=== PATIENT | male | born 1940 | race Caucasian/White ===

== ENCOUNTER 2017-07-16 10:33 | Emergency (ER) | payer MEDICARE, MEDICAID ==
[~2017-07-16] VITALS: Ht 177.8 cm; Wt 90.7 kg
[~2017-07-16 10:33] MED LIST: BENA20TA2 PO; METF850T2 PO; SIMV20TA6 PO; TAMS0.4C34 PO
[2017-07-16 11:17] LABS: BASOPHILS % (AUTO) 0.3 % (0.0-2.0); EOSINOPHILS # (AUTO) 0.4 K/uL (0.0-0.7); EOSINOPHILS % (AUTO) 6.6 % (0.0-7.0); HEMOGLOBIN 13.1 G/DL (14.0-18.0); MEAN CORPUSCULAR HEMOGLOBIN 30.6 UUG (27.0-31.0); MEAN CORPUSCULAR HGB CONC 34 g/dL (32.0-37.0); MONOCYTES # (AUTO) 0.9 K/UL (0.1-1.30); MONOCYTES % (AUTO) 14.8 % (0.0-11.0); NEUTROPHILS # (AUTO) 2.6 K/UL (1.8-8.9); NEUTROPHILS % (AUTO) 44.3 % (38.5-71.5); PLATELET COUNT (AUTO) 167 K/UL (150-450); RED BLOOD CELL COUNT(AUTO) 4.28 MIL/UL (4.7-6.1); WHITE BLOOD COUNT (AUTO) 5.9 K/UL (4.0-11.2)
[2017-07-16 11:22] LABS: CARBON DIOXIDE 31 mmol/L (21-32); CHLORIDE 98 mmol/L (98-107); CREATININE 1.2 mg/dL (0.6-1.3); GLUCOSE 155 mg/dL (74-106); POTASSIUM 4.2 mmol/L (3.5-5.1); UREA NITROGEN, BLOOD 18 mg/dL (7-18)
[2017-07-16 11:38] LABS: ALANINE AMINOTRANSFERASE 32 U/L (16-63); ALKALINE PHOSPHATASE 41 U/L (50-136); ASPARTATE AMINOTRANSFERASE 24 U/L (15-37); BILIRUBIN,DIRECT 0.3 mg/dL (0.0-0.2); BILIRUBIN,TOTAL 1.6 mg/dL (0.2-1.0); TOTAL PROTEIN, SERUM 7.1 g/dL (6.4-8.2)
--- NOTE | 2017-07-16 13:36 | NUR ---
Patient discharged to home in stable conditon. Written and verbal after care instructions given. Patient verbalizes understanding of instructions.PT WALKS IN STEADY GAIT, SAYS FEELS BETTER, DENEIS CO,PALPITATION OR SOB AT THIS TIME.
[2017-07-16 13:37] VITALS: BP 119/65
== END 2017-07-16 13:38 | disposition home or self-care (01) ==
LOC: ER 10:33
DX: R07.9 Chest pain, unspecified (principal); R05 Cough; I25.2 Old myocardial infarction; I10 Essential (primary) hypertension; I70.0 Atherosclerosis of aorta; E11.9 Type 2 diabetes mellitus without complications; E78.5 Hyperlipidemia, unspecified
CPT/HCPCS: 36415; 70030-TC; 71010; 85025; 85730; 93005; A4663

== ENCOUNTER 2017-08-12 06:49 | Emergency (ER) | payer MEDICARE, MEDICAID ==
[~2017-08-12] VITALS: Ht 180.3 cm; Wt 88.5 kg
--- NOTE | 2017-08-12 07:14 | NUR ---
Pt seen by Dr. Martin. Xray at bedside.
--- NOTE | 2017-08-12 07:30 | NUR ---
Report given to MARY KATE Canchola. I relinquish care of pt at this time.
--- NOTE | 2017-08-12 08:30 | NUR ---
pt says feels better, able to drink a cup of water with no difficulty. eubreathing, no sign of distress. denesi any pain or nausea.
[2017-08-12 08:36] VITALS: BP 139/71
--- NOTE | 2017-08-12 08:36 | NUR ---
Patient discharged to home in stable conditon. Written and verbal after care instructions given. Patient verbalizes understanding of instructions.pt walks in steady gait.
== END 2017-08-12 08:40 | disposition home or self-care (01) ==
LOC: ER 06:51
DX: T17.208A Unspecified foreign body in pharynx causing other injury, initial encounter (principal); I10 Essential (primary) hypertension; E11.9 Type 2 diabetes mellitus without complications; E78.5 Hyperlipidemia, unspecified; N40.0 Benign prostatic hyperplasia without lower urinary tract symptoms; X58.XXXA Exposure to other specified factors, initial encounter; Y93.89 Activity, other specified; Y92.89 Other specified places as the place of occurrence of the external cause; Y99.8 Other external cause status
CPT/HCPCS: 70360; 99284; A4663

== ENCOUNTER 2018-03-05 10:12 | Emergency (ER) | payer MEDICARE, MEDICAID ==
[~2018-03-05] VITALS: Ht 180.3 cm; Wt 88.5 kg
--- NOTE | 2018-03-05 10:32 | NUR ---
Dr Grover at the bedside for MSE.
[2018-03-05 10:44] VITALS: BP 143/77
--- NOTE | 2018-03-05 10:44 | NUR ---
Patient discharged to home in stable conditon. Written and verbal after care instructions given. Patient verbalizes understanding of instructions.
== END 2018-03-05 10:45 | disposition home or self-care (01) ==
LOC: ER 10:15
DX: Z00.00 Encounter for general adult medical examination without abnormal findings (principal); I10 Essential (primary) hypertension; E11.9 Type 2 diabetes mellitus without complications; E78.5 Hyperlipidemia, unspecified; Z79.84 Long term (current) use of oral hypoglycemic drugs; Z79.899 Other long term (current) drug therapy
CPT/HCPCS: A4663